=== PATIENT | female | born 1955 | race Caucasian/White ===

== ENCOUNTER → 2019-09-30 | Outpatient (CLI) | payer OTHER, BC | LOC: RAD 09:51 | DX: M43.16 Spondylolisthesis, lumbar region (principal); M43.26 Fusion of spine, lumbar region ==

== ENCOUNTER → 2020-01-20 | Outpatient (CLI) | payer OTHER, BC ==
[2020-01-20 10:18] LABS: CREATININE 1.1 mg/dL (0.6-1.0)
== END ==
LOC: MRI 09:37
DX: M43.26 Fusion of spine, lumbar region (principal); M54.42 Lumbago with sciatica, left side; M54.41 Lumbago with sciatica, right side; G89.29 Other chronic pain; R29.890 Loss of height; R60.0 Localized edema